=== PATIENT | female | born 1970 | race Asian ===

== ENCOUNTER → 2017-04-05 | Outpatient (CLI) | payer OTHER | LOC: COL.RAD 08:17 | DX: R11.2 Nausea with vomiting, unspecified (principal) | CPT/HCPCS: A9541 ==

== ENCOUNTER 2024-02-14 07:05 | Day surgery (SDC) | payer BC, OTHER ==
[~2024-02-14] VITALS: Ht 157.5 cm; Wt 148.8 kg
[~2024-02-14 07:05] MED LIST: JANUMXR500-50 PO; KRILL OIL 5001 EACH PO; LANTUS100 U/ML SQ; LR 1,000 ML IV SCH; LYRICA 100MG C100 M1 PO; NOVOLOG 100U100 U/M1 SQ; Ondansetron 4 MG/2 ML VIAL IV PRN; SINGULAIR 110 MG/TAB PO; TRULICITY3 MG/0.5 M SQ; ULTRAM 50MG TAB50 MG PO; ZYRTEC 10MG10 MG PO
[2024-02-14] MEDS ORDERED: GLUCOPHAGE XR500 M1 PO (07:25)
[2024-02-14] MEDS ORDERED: BENTYL 20MG20 MG/TAB PO (07:27)
[2024-02-14] MEDS ORDERED: CRESTOR5 MG PO (07:27)
[2024-02-14] MEDS ORDERED: HUMIRA PEN40 MG/0.4 SQ (07:28)
[2024-02-14] MEDS ORDERED: MAG-OX 400400 MG/TAB PO (07:29)
[2024-02-14] MEDS ORDERED: COGNIQUIL CAPS1 EACH PO (07:29)
[2024-02-14] MEDS ORDERED: RIBOFLAVIN400 MG PO (07:30)
[2024-02-14] MEDS ORDERED: ZANAFLEX 4MG TAB4 MG PO (07:31)
[2024-02-14] MEDS ORDERED: Lidocaine PF 2% (20 MG/ML) 5 ML VIAL ONE (08:29)
--- NOTE | 2024-02-14 09:36 | NUR ---
0920 PATIENT RETURNS TO [facility] [place] VIA CART. PT AWAKE AND ALERT. RESPIRATIONS UNLABORED. AMBULATED TO RECLINER CHAIR WITH 2:1 SBA. PT DENIES NAUSEA OR ABDOMINAL PAIN. HOOKED UP TO MONITOR AND VS OBTAINED. CALL LIGHT AT SIDE AND PRESENT. 0925 PATIENT TOLERATING WATER WITHOUT NAUSEA OR DIFFICULTY SWALLOWING (EGD ONLY). 0935 IN ROOM SPEAKING WITH PATIENT. 0945 D/C INSTRUCTIONS REVIEWED WITH PATIENT. PT VERBALIZED UNDERSTANDING AND A COPY OF INSTRUCTIONS PROVIDED IN D/C FOLDER. 0950 PATIENT DRESSES SELF. 1000 PATIENT DISCHARGED FROM UNIT VIA W/C TO A PERSONAL VEHICLE. PT LEFT HOSPITAL IN STABLE CONDITION.
[2024-02-14 12:11] VITALS: BP 189/92; PULSE 71; TEMP 97
--- NOTE | 2024-02-14 12:18 | NUR ---
0715 Patient ambulatory to bay with steady gait, breathing even and unlabored. Pt is alert and oriented, accompanied by her . Consents reviewed and signed by the patient. IV established. LR infusion via gravity at KVO. Call light in reach. Warm blanket provided.
== END 2024-02-14 10:15 | disposition home or self-care (01) ==
LOC: SDCO 07:05
DX: D12.5 Benign neoplasm of sigmoid colon (principal); K21.00 Gastro-esophageal reflux disease with esophagitis, without bleeding; K29.30 Chronic superficial gastritis without bleeding; K92.1 Melena; R19.7 Diarrhea, unspecified; K59.00 Constipation, unspecified; K64.0 First degree hemorrhoids; G47.33 Obstructive sleep apnea (adult) (pediatric); E66.01 Morbid (severe) obesity due to excess calories
CPT/HCPCS: J2704; J7120